=== PATIENT | male | born 1985 | race Native Hawaiian/Other Pacific Islander ===

== ENCOUNTER 2017-05-22 18:16 | Emergency (ER) | payer OTHER ==
[2017-05-22 19:14] VITALS: RESP 16; O2SAT 100
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
[2017-05-22 21:04] VITALS: BP 115/74; PULSE 60; TEMP 98.2
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
== END 2017-05-22 21:13 | disposition home or self-care (01) ==
LOC: C.ER 18:16
DX: S39.012A Strain of muscle, fascia and tendon of lower back, initial encounter (principal); V43.52XA Car driver injured in collision with other type car in traffic accident, initial encounter; Y92.410 Unspecified street and highway as the place of occurrence of the external cause